=== PATIENT | female | born 1970 | race Caucasian/White ===

== ENCOUNTER 2020-09-15 15:03 | Outpatient (CLI) | payer OTHER, SELFPAY ==
--- NOTE | ~2020-09-15 | MM_ITS ---
EXAMINATION: MM screening gio BI w edgar HISTORY: Screening TECHNIQUE: Craniocaudal and mediolateral oblique 3-D tomosynthesis images were obtained and synthetic 2-D images were generated. CAD analysis was submitted and interpreted. COMPARISON: Comparison to multiple prior studies sequentially, with oldest reviewed study dated 02/10. BREAST PARENCHYMAL COMPOSITION: There are scattered areas of fibroglandular density. FINDINGS: There is no evidence of suspicious mass, calcification, or architectural distortion to sugg est malignancy in either breast. There has been no suspicious interval change. IMPRESSION: 1. No mammographic evidence of malignancy. 2. Recommend routine screening mammography in one year. BI-RADS Category 1: Negative Reviewed, dictated and finalized at location A.
== END 2020-09-15 15:04 | disposition home or self-care (01) ==
LOC: ANHIMG 15:07
PROVIDERS: Visit Provider Student in an Organized Health Care Education/Training Program
DX: Z12.31 Encounter for screening mammogram for malignant neoplasm of breast (principal)
CPT/HCPCS: 77063; 77067

== ENCOUNTER 2021-10-12 08:55 | Outpatient (CLI) | payer OTHER, SELFPAY ==
--- NOTE | ~2021-10-12 | MM_ITS ---
EXAMINATION: MM screening gio BI w edgar HISTORY: Screening mammogram TECHNIQUE: Craniocaudal and mediolateral oblique 3-D tomosynthesis images were obtained and synthetic 2-D images were generated. CAD analysis was submitted and interpreted. COMPARISON: 09/15/2020, 11/26/2018, 02/22/2015 bilateral screening mammogram examinations BREAST PARENCHYMAL COMPOSITION: The breasts are almost entirely fatty. FINDINGS: There is no evidence of suspicious mass, calcification, or architectural distortion to sugg est malignancy in either breast. There has been no suspicious interval change. IMPRESSION: 1. No mammographic evidence of malignancy. 2. Recommend routine screening mammography in one year. BI-RADS Category 1: Negative Reviewed, dictated and finalized at location A.
== END 2021-10-12 08:56 | disposition home or self-care (01) ==
PROVIDERS: Visit Provider Student in an Organized Health Care Education/Training Program
DX: Z12.31 Encounter for screening mammogram for malignant neoplasm of breast (principal)
CPT/HCPCS: 77063; 77067

== ENCOUNTER 2023-08-30 13:40 | Emergency (ER) | payer BC, SELFPAY ==
--- NOTE | ~2023-08-30 | XR_ITS ---
EXAMINATION: XR chest 2V 08/30/2023 14:18 INDICATION: Chest pain PROCEDURE: 2 view chest COMPARISON: No prior studies for comparison. FINDINGS: The lungs are clear. The cardiomediastinal silhouette is within normal limits. There are no pleural effusions. There is no pneumothorax suspected. IMPRESSION: 1: NO ACUTE CARDIOPULMONARY DISEASE. Reviewed, dictated and finalized at location B.
[2023-08-30 13:52] VITALS: BP 141/82; PULSE 75; RESP 17; TEMP 37.2; O2SAT 100
--- NOTE | 2023-08-30 13:53 | ECG_ITS ---
SEE SCANNED COPY FOR CONFIRMED REPORT MTDD
[2023-08-30 14:00] VITALS: BP 141/82; PULSE 74; RESP 16; TEMP 36.7; O2SAT 100
[2023-08-30 14:10] LABS: Basophils Percent Auto 0.7 % (0.2-1.2); Eosinophils Absolute Auto 0.1 K/mm3 (0-0.3); Eosinophils Percent Auto 0.9 % (0-4.4); Hematocrit 38.6 % (37.0-47.0); Hemoglobin 12.4 g/dL (12.0-15.0); Immature Granulocyte Absolute 0.02 K/mm3 (0.00-0.031); Immature Granulocyte Percent A 0.4 % (0-0.5); Lymphocytes Absolute Auto 2.47 K/mm3 (0.9-3.2); Lymphocytes Percent Auto 44.5 % (18.3-44.2); Mean Corpuscular HGB Conc 32.1 g/dl (32-36); Mean Corpuscular Volume 93.2 fl (80-100); Mean Platelet Volume 9.8 fl (7.4-10.4); Monocytes Absolute Auto 0.5 K/mm3 (0.1-0.6); Monocytes Percent Auto 8.3 % (2.6-8.5); Neutrophils Absolute Auto 2.5 K/mm3 (1.3-6.7); Neutrophils Percent Auto 45.2 % (45.5-73.1); Platelet Count Result 289 k/mm3 (150-375); Red Blood Count 4.14 M/mm3 (4.2-5.4); Red Cell Distribution Width 12.4 % (11.5-14.5); White Blood Count 5.6 K/mm3 (4.5-10.0)
[2023-08-30 14:20] LABS: Partial Thromboplastin Time 26.1 Seconds (22.3-36.8)
[2023-08-30 14:26] LABS: Alanine Aminotransferase 34 U/L (6-35); Albumin Level 4.5 g/dL (3.5-5.1); Alkaline Phosphatase 68 U/L (38-126); Anion Gap 4 mmol/L (4-12); Aspartate Amino Transferase 29 U/L (14-36); Bilirubin,Total 0.3 mg/dL (0.2-1.3); Blood Urea Nitrogen 13 mg/dL (7-17); Calcium 9.3 mg/dL (8.4-10.2); Carbon Dioxide 29 mmol/L (22-30); Chloride 106 mmol/L (98-107); Estimated CRCL calculation 112 ml/min; Estimated Glomerular Filt Rate > 60; Glucose 129 mg/dL (65-110); Lipase 112 U/L (23-300); Potassium 3.9 mmol/L (3.4-5.0); Sodium 139 mmol/L (137-145)
[2023-08-30 14:37] LABS: Troponin I < 0.012 ng/mL (0.000-0.034)
[2023-08-30 15:00] VITALS: BP 136/80; PULSE 74; RESP 16; TEMP 36.6; O2SAT 99
[2023-08-30 16:00] VITALS: BP 132/78; PULSE 76; RESP 16; TEMP 36.6; O2SAT 100
--- NOTE | 2023-08-30 16:57 | ECG_ITS ---
SEE SCANNED COPY FOR CONFIRMED REPORT MTDD
[2023-08-30 17:04] VITALS: BP 136/80; PULSE 72; RESP 18; TEMP 36.7
[2023-08-30 17:18] LABS: Troponin I < 0.012 ng/mL (0.000-0.034)
--- NOTE | 2023-08-30 17:25 | ED_ITS ---
HPI - Chest Pain General Chief Complaint: Chest Pain Stated Complaint: CP Time Seen by Provider: 08/30/23 13:53 Source: patient Mode of arrival: ambulatory Limitations: no limitations History of Present Illness HPI narrative: 53-year-old otherwise healthy here with a complaint of sudden onset of right- sided chest pain radiating into our arm and into her leg. Patient states that she was driving back home and of a sudden the symptoms started she stated her fingers were tingly. She denies any shortness of breath. No previous history of CAD MD complaint: chest pain Onset (ago): hour(s) (1) Timing of current episode: now resolved Pain location: parasternal Pain radiation: left arm and other (Left leg) Quality: heaviness Risk Factors Coronary artery disease risk factors: none Thoracic aortic dissection risk factors: none Related Data Allergies Allergy/AdvReac Type Severity Reaction Status Date / Time penicillin G Allergy Unknown Verified 08/30/23 14:04 Review of Systems Review of Systems: All systems reviewed & are unremarkable except as noted in HPI and below Constitutional: Constitutional: Reports no additional constitutional complaints Eyes: Eyes: Reports no additional eye complaints ENT: Reports system reviewed and no additional complaints, except as documented Cardiovascular: Cardiovascular: Reports as per HPI Respiratory: Respiratory: Reports no additional respiratory complaints Endocrine: Endocrine: Reports no additional endocrine complaints Hematologic/Lymphatic: Hematologic/Lymphatic: Reports no additional hematologic/lymphatic complaints Allergic/Immunologic: Allergic/Immunologic: Reports no additional allergic/immunologic complaints Exam Narrative: GENERAL: Well-appearing, well-nourished, and in no acute distress. HEAD: Normocephalic, atraumatic. EYES: PERRLA and EOMI. ENT: Nares clear, no rhinorrhea or epistaxis. Mucous membranes moist. NECK: Supple. CHEST: Clear to auscultation. No respiratory distress. HEART: Regular rate and rhythm. No murmur heard. Normal peripheral pulses. ABDOMEN: Soft, nontender, nondistended, normal active bowel sounds. EXTREMITIES: Normal range of motion. No edema. SKIN: Warm, dry, no rash. NEURO: No focal deficits. Alert and oriented x3. PSYCH: Normal mood and affect. Course Course Emergency Course: Inform patient about her lab work, EKG and chest x-ray fine now she has no further episodes of pain. Advised to follow with her primary doctor for further testing. She feels comfortable going home. Vital Signs Vital signs: Vital Signs Temperature 37.2 C 08/30/23 13:52 Pulse Rate 75 08/30/23 13:52 Respiratory Rate 17 08/30/23 13:52 Blood Pressure 141/82 H 08/30/23 13:52 Pulse Oximetry 100 08/30/23 13:52 Temperature 36.6 C 08/30/23 16:00 Pulse Rate 76 08/30/23 16:00 Respiratory Rate 16 08/30/23 16:00 Blood Pressure 132/78 08/30/23 16:00 Pulse Oximetry 100 08/30/23 16:00 Oxygen Delivery Room Air 08/30/23 14:07 MDM - Chest Pain Differential Diagnosis Differential diagnosis: Likely atypical chest pain, chest pain and other (Anxiety) Medical Records Data Attestation: I reviewed the patient's medical records. Lab Data Attestation: I reviewed the patient's lab results. 08/30/23 14:01 08/30/23 14:01 Labs: Lab Results 08/30/23 08/30/23 Range/Units 14:01 16:51 WBC 5.6 (4.5-10.0) K/mm3 RBC 4.14 L (4.2-5.4) M/mm3 Hgb 12.4 (12.0-15.0) g/dL Hct 38.6 (37.0-47.0) % MCV 93.2 (80-100) fl MCH 30.0 (26-34) pg MCHC 32.1 (32-36) g/dl RDW 12.4 (11.5-14.5) % Plt Count 289 (150-375) k/mm3 MPV 9.8 (7.4-10.4) fl Immature Gran % (Auto) 0.4 (0-0.5) % Neut % (Auto) 45.2 L (45.5-73.1) % Lymph % (Auto) 44.5 H (18.3-44.2) % [place] % (Auto) 8.3 (2.6-8.5) % Eos % (Auto) 0.9 (0-4.4) % Baso % (Auto) 0.7 (0.2-1.2) % Lymph # (Auto) 2.47 (0.9-3.2) K/mm3 [place] # (Auto) 0.5 (0.1-0.6) K/mm3 Eos # (Auto) 0.1 (0-0.3) K/mm3 Baso # (Auto) 0.0 (0.0-0.1) K/mm3 Abs Immat Gran (auto) 0.02 (0.00-0.031) K/mm3 Absolute Neuts (auto) 2.5 (1.3-6.7) K/mm3 Absolute Nucleated RBC 0.000 (0.0-0.012) K/mm3 Nucleated RBC % 0.0 (0.0-0.2) % PT 14.0 (11.1-14.7) Seconds INR 1.0 APTT 26.1 (22.3-36.8) Seconds Sodium 139 (137-145) mmol/L Potassium 3.9 (3.4-5.0) mmol/L Chloride 106 (98-107) mmol/L Carbon Dioxide 29 (22-30) mmol/L Anion Gap 4 (4-12) mmol/L BUN 13 (7-17) mg/dL Creatinine 0.50 L (0.7-1.0) mg/dL Estim Creat Clear Calc 112 ml/min Estimated GFR > 60 (59 - ) Glucose 129 H (65-110) mg/dL Calcium 9.3 (8.4-10.2) mg/dL Total Bilirubin 0.3 (0.2-1.3) mg/dL AST 29 (14-36) U/L ALT 34 (6-35) U/L Alkaline Phosphatase 68 (38-126) U/L Troponin I < 0.012 < 0.012 (0.000-0.034) ng/mL Total Protein 7.0 (6.3-8.2) g/dL Albumin 4.5 (3.5-5.1) g/dL Lipase 112 (23-300) U/L Imaging Data Radiologist's impression: ITS Impressions Chest X-Ray 08/30/23 14:22 IMPRESSION: 1: NO ACUTE CARDIOPULMONARY DISEASE. ECG Data EKG #1: ECG completion date: 08/30/23 ECG completion time: 13:56 EKG Interpretation: normal rate (80), sinus rhythm, no ectopy, no ST changes, normal QT and NL axis EKG #2: ECG completion date: 08/30/23 ECG completion time: 16:57 EKG Interpretation: normal rate (72), sinus rhythm, no ectopy, normal QT and NL axis Discharge Plan Discharge Clinical Impression: Atypical chest pain Patient Disposition: Home, Self-Care Condition: Stable Instructions: Chest Pain (ED) Additional Instructions: Follow-up with your primary doctor in the next few days. Continue home medication Follow-up/Referrals: Johnny Daley MD [Primary Care Provider] - Time of Disposition: 17:26 Quality HEART score for chest pain patients History: slightly suspicious ECG: normal Age: > 45 and < 65 years Risk factors: no risk factors known Troponin: < or = to 1x normal limit Heart score: 1
== END 2023-08-30 17:43 | disposition home or self-care (01) ==
PROVIDERS: Emergency Provider Family Medicine; PCP Family Medicine
DX: R07.89 Other chest pain (principal); R94.31 Abnormal electrocardiogram [ECG] [EKG]
CPT/HCPCS: 36415; 71046; 80053; 83690; 84484; 85025; 85610; 85730; 93005; 99284

== ENCOUNTER 2024-11-24 15:02 | Outpatient (CLI) | payer BC, SELFPAY ==
--- NOTE | ~2024-11-24 | MR_ITS ---
MRI of the left ankle Clinical history: Injury Technique: Coronal proton-density and proton-density fat-sat images, axial proton-density and proton- density fat-sat images, and sagittal proton-density and proton-density fat-sat images were acquired. Findings: Syndesmotic ligaments are intact. There is mild thickening and increased signal of the ante rior talofibular ligament. Posterior talofibular ligament is intact. There is thickening and increase d signal the calcaneofibular ligament. Deltoid ligament intact. Medial flexor tendons, peroneal tendons, anterior extensor tendons, and Achilles tendon are intact. There is high-grade chondromalacia at the medial corner of the talar dome with subchondral marrow kishan ma, compatible with developing osteochondral lesion at the region. There is marrow edema at the media l malleolus, which could reflect contusion or stress response. No joint effusion evident. Plantar fascia intact. No soft tissue mass or fluid collection evident. Impression: Thickening and increased signal of the anterior talofibular and calcaneofibular ligaments, compatible with sequelae of lateral ankle sprain. Developing osteochondral lesion at the medial corner of the talar dome. Probable contusion versus other reactive marrow edema at the medial malleolus. Reviewed, dictated and finalized at location . Impression: Thickening and increased signal of the anterior talofibular and calcaneofibular ligaments, compatible with sequelae of lateral ankle sprain. Developing osteochondral lesion at the medial corner of the talar dome. Probable contusion versus other reactive marrow edema at the medial malleolus.
--- NOTE | ~2024-11-24 | MR_ITS ---
MRI of the left foot Clinical history crush injury of tendon TECHNIQUE: Axial proton-density and proton-density fat-sat images, sagittal T1-weighted and STIR imag es, and coronal T1-weighted and proton-density fat-sat images were performed. FINDINGS: Bone marrow signals are unremarkable. No fracture or bone marrow edema. No evidence for ost eitis. There are mild degenerative changes scattered in the interphalangeal joints of the toes. No amadou int effusion evident. Flexor and extensor tendons are intact. Intrinsic musculature of the foot is unremarkable. No evidenc e for intermetatarsal bursitis or Wilder's neuroma. No soft tissue mass or fluid collection seen. IMPRESSION: No significant abnormality seen. Reviewed, dictated and finalized at [facility].
== END 2024-11-24 15:03 | disposition home or self-care (01) ==
LOC: GOSHIMG 15:03
PROVIDERS: PCP Podiatrist Foot & Ankle Surgery; Visit Provider Podiatrist Foot & Ankle Surgery
DX: M93.272 Osteochondritis dissecans, left ankle and joints of left foot (principal)
CPT/HCPCS: 73718; 73721